=== PATIENT | female | born 1980 | race Caucasian/White ===

== ENCOUNTER 2018-08-24 12:51 | Emergency (ER) | payer MEDICAID ==
[~2018-08-24] VITALS: Ht 154.9 cm; Wt 58.5 kg
[~2018-08-24 12:51] MED LIST: DOCU-160; NAPR-688; PHEN-716; SULF1TAB7
[2018-08-24 13:00] VITALS: BP 131/74; PULSE 76; RESP 18; Ht 154.9 cm; Wt 58.5 kg
--- NOTE | 2018-08-24 15:04 | ERD ---
ER Documentation Chief Complaint Chief Complaint epigastric pain - LMP 07/08/18 HPI 38-year-old female (LMP 07/08) with no past medical surgical history who presents with 2-week complaint of epigastric abdominal pain. Describes pain is burning pain to epigastrium and chest following meals. She denies associated na usea, vomiting, diarrhea. Denies any fevers. Was recently prescribed famotidine August 17 of this year.. Famotidine has not helped with her pain. She is most concerned about worsening epigastric pain. She otherwise denies vaginal bleeding or urinary symptoms such as burning or itching or frequency. All previous pregnancies without complications. At time of examination patient is nontoxic-appearing. ROS All systems reviewed and are negative except as per history of present illness. Medications Home Meds Active Scripts Cephalexin* (Keflex*) 500 Mg Capsule, 500 MG PO BID for 7 Days, CAP Prov:ROSANNA MELO PA-C 08/24/18 Sucralfate* (Carafate*) 1 Gm Tab, 1 GM PO QID for 7 Days, TAB Prov:ROSANNA MELO PA-C 08/24/18 Reported Medications Naproxen* (Naproxen*) 500 Mg Tablet 10/20/12 Sulfamethoxazole-Trimethoprim* (Bactrim* DS) 1 Tab Tab 10/20/12 Phenazopyridine Hcl* (Phenazopyridine Hcl*) 100 Mg Tablet 10/20/12 Docusate Sodium (Dulcolax Stool Softener) 100 Mg Capsule 10/20/12 Allergies Allergies: Coded Allergies: No Known Allergies (Unverified Allergy, Unknown, 10/20/12) PMhx/Soc Hx Alcohol Use: No Hx Substance Use: No Hx Tobacco Use: No FmHx Family History: No diabetes, No coronary disease, No other Physical Exam Vitals Vital Signs Date Temp Pulse Resp B/P (MAP) Pulse Ox O2 O2 Flow FiO2 Time Delivery Rate 08/24/18 98.1 16:55 08/24/18 99.5 76 18 131/74 99 13:00 (93) Physical Exam I have reviewed the triage vital signs. Const: Well nourished, well developed, appears stated age Eyes: PERRL, no conjunctival injection HENT: NCAT, Neck supple without meningismus CV: RRR, Warm, well-perfused extremities RESP: CTAB, Unlabored respiratory effort GI: soft, tenderness to deep palpation to epigastrium, otherwise non tender, non-distended, no masses, no rebound or guarding MSK: No gross deformities appreciated Skin: Warm, dry. No rashes Neuro: grossly non focal Psych: Appropriate mood and affect. Result Diagram: 08/24/18 1500 08/24/18 1500 Results 24 hrs Laboratory Tests Test 08/24/18 14:54 08/24/18 15:00 Urine Color YELLOW Urine Clarity SLIGHTLY CLOUDY Urine pH 6.0 Urine Specific Stella 1.004 Urine Ketones TRACE mg/dL Urine Nitrite NEGATIVE mg/dL Urine Bilirubin NEGATIVE mg/dL Urine Urobilinogen NEGATIVE mg/dL Urine Leukocyte Esterase 1+ Simeon/ul Urine Microscopic RBC 4 /HPF Urine Microscopic WBC 10 /HPF Urine Squamous Epithelial Cells FEW /HPF Urine Bacteria MANY /HPF Urine Mucus FEW /HPF Urine Hemoglobin NEGATIVE mg/dL Urine Glucose NEGATIVE mg/dL Urine Total Protein NEGATIVE mg/dl White Blood Count 10.6 10^3/ul Red Blood Count 4.38 10^6/ul Hemoglobin 13.5 g/dl Hematocrit 39.8 % Mean Corpuscular Volume 90.9 fl Mean Corpuscular Hemoglobin 30.8 pg Mean Corpuscular Hemoglobin Concent 33.9 g/dl Red Cell Distribution Width 11.9 % Platelet Count 378 10^3/UL Mean Platelet Volume 8.8 fl Immature Granulocytes % 0.300 % Neutrophils % 62.8 % Lymphocytes % 28.3 % Monocytes % 6.9 % Eosinophils % 1.3 % Basophils % 0.4 % Nucleated Red Blood Cells % 0.0 /100WBC Immature Granulocytes # 0.030 10^3/ul Neutrophils # 6.6 10^3/ul Lymphocytes # 3.0 10^3/ul Monocytes # 0.7 10^3/ul Eosinophils # 0.1 10^3/ul Basophils # 0.0 10^3/ul Nucleated Red Blood Cells # 0.0 10^3/ul Sodium Level 138 mmol/L Potassium Level 3.8 mmol/L Chloride Level 103 mmol/L Carbon Dioxide Level 23 mmol/L Anion Gap 12 Blood Urea Nitrogen 6 mg/dl Creatinine 0.43 mg/dl Est Glomerular Filtrat Rate mL/min > 60 mL/min Glucose Level 104 mg/dl Calcium Level 9.7 mg/dl Total Bilirubin 0.3 mg/dl Direct Bilirubin 0.00 mg/dl Indirect Bilirubin 0.3 mg/dl Aspartate Amino Transf (AST/SGOT) 23 IU/L Alanine Aminotransferase (ALT/SGPT) 26 IU/L Alkaline Phosphatase 89 IU/L Total Protein 8.3 g/dl Albumin 4.7 g/dl Globulin 3.60 g/dl Albumin/Globulin Ratio 1.30 Lipase 66 U/L Procedures/MDM 38-year-old female who presents with epigastric abdominal pain. This patient presents with abdominal pain of unclear etiology and may be related to simple GERD. Nonetheless we will rule out for static process. Th evaluation has not identified a emergent etiology for the abdominal pain. Specifically, gi marcie the very benign exam, normal laboratory studies, and lack of significant risk factors, I have a very low suspicion for appendicitis, ischemic bowel, bowel perforation, or any other life threatening disease. ED course: US abdomen with cholelithiasis but no evidence of acute cholecystitis UA positive for UTI, Will treat keflex 7 day course Labs wnl, LFT's, Lipase wnl I have discussed with the patient the level of uncertainty with undifferentiated abdominal pain and clearly explained the need to follow-up as noted on the discharge instructions, or return to the Emergency Department immediately if the pain worsens, develops fever, persistent and uncontrollable vomiting, or for any new symptoms or concerns. I discussed with the patient that this presentation today for abdominal pain could represent a significant risk for an acute abdominal process. Although the tests in the ED were essentially normal, there is still a possibility of a process such as appendicitis, diverticulitis, ch olecystitis, ulcer, early bowel obstruction, mesenteric ischemia, kidney stone, or even kidney infection which could subsequently cause disability or . The patient understands that they must return within 24 hours for a recheck or see their physician within 24 hours for re-exam due to the possibility of significant surgical or medical process. DISPOSITION PLAN: We discussed follow up with the patient's primary care doctor within 24 to 48 hours. Patient counseled regarding my diagnostic impression and care plan. Prior to discharge all questions answered. Pt agrees with treatment plan and understands strict return precautions. Precautionary instructions provided including instructions to return to the ER if not improving or for any worsening or changing symptoms or concerns. Departure Diagnosis: Primary Impression: GERD (gastroesophageal reflux disease) Additional Impression: Epigastric pain Condition: Stable ROSANNA MELO PA-C Aug 24, 2018 14:56
[2018-08-24] MEDS ORDERED: SUCR1TAB56 PO (16:05)
[2018-08-24] MEDS ORDERED: CEPH-443 PO (16:10)
== END 2018-08-24 16:55 | disposition home or self-care (01) ==
LOC: FTE 12:51
DX: O99.619 Diseases of the digestive system complicating pregnancy, unspecified trimester (principal); K21.9 Gastro-esophageal reflux disease without esophagitis; R10.13 Epigastric pain; Z3A.00 Weeks of gestation of pregnancy not specified
CPT/HCPCS: 36415; 76705; 80053; 80076; 81001; 83690; 85025; Z7502